=== PATIENT | female | born 1995 | race Caucasian/White ===

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

== ENCOUNTER 2018-06-23 08:16 | Emergency (ER) | payer OTHER ==
[~2018-06-23] VITALS: Ht 167.6 cm; Wt 113.6 kg
[2018-06-23 08:20] VITALS: BP 105/63; TEMP 98.8
[2018-06-23 09:02] LABS: HEMATOCRIT 42.4 % (37.0-47.0); HEMOGLOBIN 14.2 g/dl (12.5-16.0); MEAN CELL VOLUME 88 fl (80.0-100.0); MEAN CORPUSCULAR HEMOGLOBIN 30 pg (27.0-31.0); MEAN CORPUSCULAR HGB CONC 34 g/dl (33.0-37.0); MEAN PLATELET VOLUME 9.6 fl (7.4-10.4); PLATELET COUNT 252 K/mm3 (130-400); RED BLOOD COUNT 4.82 M/mm3 (4.10-5.30)
[2018-06-23 09:12] LABS: BILIRUBIN,TOTAL 0.6 mg/dL (0.0-1.0); CALCIUM 9.7 mg/dL (8.4-10.2); CREATININE, serum 0.71 mg/dL (0.52-1.25); POTASSIUM 4.3 mmol/L (3.4-5.0); TOTAL PROTEIN 7.8 gm/dL (6.4-8.2)
[2018-06-23 09:25] LABS: BAND 27 % (0-10); BASOPHIL 1 % (0-2); LYMPHOCYTE 23 % (20.0-51.0); NEUTROPHILS 45 % (42.0-75.2)
[2018-06-23 09:29] LABS: PLATELET ESTIMATE NORMAL (NORMAL)
[2018-06-23] MEDS ORDERED: CLEOCIN HCL300 MG PO (10:57)
[2018-06-23 12:01] VITALS: PULSE 90
== END 2018-06-23 12:03 | disposition home or self-care (01) ==
LOC: COL.ER 08:16
PROVIDERS: Family Medicine
DX: J03.90 Acute tonsillitis, unspecified (principal)
CPT/HCPCS: J1100; J7030; Q9967

== ENCOUNTER → 2019-05-31 | Outpatient (CLI) | payer OTHER ==
[~2019-05-31] MED LIST changes: +CLEOCIN HCL300 MG PO
== END ==
LOC: COL.RAD 15:07
DX: M79.671 Pain in right foot (principal)

== ENCOUNTER 2020-11-18 09:45 | Outpatient (RCR) | payer OTHER ==
[~2020-11-18 09:45] MED LIST changes: +ADIPEX-P37.5 MG PO; +TOPAMAX50 MG PO
== END 2020-12-03 10:40 | disposition still patient (30) ==
LOC: WSC 09:45
DX: H81.10 Benign paroxysmal vertigo, unspecified ear (principal)